=== PATIENT | female | born 1935 | race Caucasian/White ===

== ENCOUNTER 2021-05-11 20:00 | Emergency (ER) | payer MEDICARE ==
[~2021-05-11] VITALS: Ht 152.4 cm; Wt 83.9 kg
--- NOTE | 2021-05-11 21:48 | NUR ---
BAT PERSON: PT. TO ROOM FROM LOBBY AT THIS TIME.
--- NOTE | 2021-05-11 21:55 | NUR ---
PT IN ROOM, PLACED IN GOWN. ASSUMED CARE OF PT WHO IS HERE FOR STEARNS. SHE REPORTS HER HEAD SPINNING WHEN SHE WENT TO LAY BACK IN [facility], DENIES FEELING OF PASSING OUT. NEURO INTACT. NADN CALL LIGHT W/IN REACH. ERP CURRENTLY BEDSIDE.
--- NOTE | 2021-05-11 22:22 | NUR ---
PT UP TO BATHROOM AND BACK W/O INCIDENT, STEADY GAIT.
--- NOTE | 2021-05-11 23:01 | NUR ---
PT TO CT
--- NOTE | 2021-05-11 23:22 | NUR ---
[facility]. PT HTN, OTHER VSS. NADN. CALL LIGHT W/IN REACH.
[2021-05-12 00:08] VITALS: BP 169/91
--- NOTE | 2021-05-12 00:09 | NUR ---
MD BEDSIDE W/ PLAN TO D/C, WAITING FOR PAPERWORK. JENNA SPRAGUE. CALL LIGHT W/IN REACH.
--- NOTE | 2021-05-12 00:26 | NUR ---
Patient given discharge instructions and they have confirmed that they understand the instructions. Patient ambulatory with steady gait.
== END 2021-05-12 00:37 | disposition home or self-care (01) ==
LOC: ED 23:08
DX: G44.039 Episodic paroxysmal hemicrania, not intractable (principal); I10 Essential (primary) hypertension; E03.9 Hypothyroidism, unspecified
CPT/HCPCS: 70450; 99284

== ENCOUNTER 2021-06-28 12:41 | Outpatient (CLI) | payer MEDICARE | END 2021-06-28 23:59 | disposition home or self-care (01) | LOC: RAD 12:41 | PROVIDERS: ATTEND Family Medicine | DX: M79.661 Pain in right lower leg (principal); R22.41 Localized swelling, mass and lump, right lower limb ==